=== PATIENT | female | born 1985 | race Caucasian/White ===

== ENCOUNTER 2020-08-03 16:34 | Emergency (ER) | payer BC, SELFPAY ==
[2020-08-03 16:58] VITALS: BP 127/85; PULSE 90; RESP 16; TEMP 36.2; O2SAT 99
[2020-08-03] MEDS: LIDOCAINE HCL 1% LOCAL INJ 20 ML VIAL IM (17:31)
[2020-08-03] MEDS: cefTRIAXone 250 MG VIAL IM (17:32)
--- NOTE | 2020-08-03 17:52 | ED.FEMALEGU ---
HPI - Female Genitourinary General Chief complaint: Urogenital-Female Stated complaint: STD Time Seen by Provider: 08/03/20 17:14 Source: patient and RN notes reviewed Mode of arrival: ambulatory Limitations: no limitations History of Present Illness HPI Narrative: Patient presents today with a 2-week history of malodorous clear discharge. States the clear discharge is more copious than normal. She denies pelvic or abdominal pain. She does have frequent unprotected intercourse with one male partner. No recent STD history. History of a LEEP procedure and cervical cancer. States she has not had a pelvic exam or Pap smear in approximately 7 years. Her significant other accompanies her here today with similar symptoms, for evaluation as well. MD elicited complaint: vaginal discharge Related Data Allergies Allergy/AdvReac Type Severity Reaction Status Date / Time azithromycin Allergy Mild Rash Verified 08/03/20 16:50 Review of Systems Review of Systems: Narrative: CONSTITUTIONAL: Denies body aches, fever, chills, or sweats. EYES: Denies visual changes, redness, or discharge. ENT: Denies rhinorrhea, congestion, sore throat, or otalgia. CARDIOVASCULAR: Denies chest pain, palpitations, or edema. RESPIRATORY: Denies cough or dyspnea. GASTROINTESTINAL: Denies abdominal pain, nausea, vomiting, or diarrhea. GENITOURINARY: Denies dysuria or hematuria.+ Malodorous clear vaginal discharge SKIN: Denies rash, itching, or wounds. MUSCULOSKELETAL: Denies back pain, joint pain, or myalgia. NEUROLOGIC: Denies headache, numbness, tingling, or weakness. PSYCH: Denies depression or anxiety. [facility] Past Medical History Medical History (Updated 08/03/20 @ 17:55 by Soraya Schumacher, [employer], ) History of cervical cancer Liver laceration Surgical History Surgical History (Updated 08/03/20 @ 17:55 by Soraya Schumacher, [facility], ) H/O tubal ligation S/P LEEP (loop electrosurgical excision procedure) Family History Family History (Updated 02/11/14 @ 07:13 by DOCTOR UNKNOWN) Mother Family history of osteoporosis Hypertension Family history of osteoarthritis Family history of elevated blood lipids Family history of thyroid disease Father Depression Hypertension Family history of arthritis Family history of congestive heart failure Social History Social History Second hand tobacco smoke exposure: Yes Smoking end date: 06/17/11 Alcohol intake: never Gender identity (if verbalized by the patient): Female Comments Reviewed. Pt has been instructed to follow up with her PCP regarding her elevated blood pressure today. Exam Narrative: Exam Narrative: GENERAL: Well-appearing, well-nourished, and in no acute distress. HEAD: Normocephalic, atraumatic. EYES: EOMI. No redness or drainage. Conjunctivae normal. ENT: Mucous membranes pink and moist. NECK: Normal AROM. Supple. No lymphadenopathy. CHEST: No respiratory distress. ABDOMEN: Soft, nontender, nondistended, normal active bowel sounds. : Patient declines a pelvic exam at this time. MUSCULOSKELETAL: No bony tenderness. EXTREMITIES: Normal range of motion. No edema. SKIN: Warm, dry, no rash. Capillary refill normal. Normal skin turgor. NEURO: No focal deficits. Alert and oriented x3. Gait steady. PSYCH: Normal affect. No signs of depression or anxiety. Course Vital Signs Vital signs: Vital Signs Temperature 97.1 F L 08/03/20 16:58 Pulse Rate 90 08/03/20 16:58 Respiratory Rate 16 08/03/20 16:58 Blood Pressure 127/85 08/03/20 16:58 Pulse Oximetry 99 08/03/20 16:58 Temperature 97.1 F L 08/03/20 16:58 Pulse Rate 90 08/03/20 16:58 Respiratory Rate 16 08/03/20 16:58 Blood Pressure 127/85 08/03/20 16:58 Pulse Oximetry 99 08/03/20 16:58 Reviewed. Pt has been instructed to follow up with her PCP regarding her elevated blood pressure today. MDM - Female Genitourinary Differential Diagnosis Differential diagnosis: Celi
== END 2020-08-03 17:44 | disposition home or self-care (01) ==
PROVIDERS: Emergency Provider Nurse Practitioner; PCP Family Medicine
DX: N89.8 Other specified noninflammatory disorders of vagina (principal); Z11.3 Encounter for screening for infections with a predominantly sexual mode of transmission; Z85.41 Personal history of malignant neoplasm of cervix uteri
CPT/HCPCS: 81025; 87491; 87591; 87661; 96372; 99214; G0463; J0696

== ENCOUNTER 2024-09-04 10:48 | Emergency (ER) | payer SELFPAY ==
[2024-09-04 10:57] VITALS: BP 109/65; PULSE 80; RESP 16; TEMP 36.7; O2SAT 100
--- OUTSIDE RECORDS SUMMARY | 2024-09-04 11:58 | XMS_ITS | Patient Health Record ---
Author Organization [facility] Address [address] [place] [address] Care Team Providers Care Induction Heat Treater Name Role Phone Ryan Lo Primary Care Provider [phone] Allergies Allergen (clinical drug ingredient) Drug/Non Drug Allergy documented on EMR Reaction Allergy Type Onset Date Status azithromycin Zithromax Z-Seven hives, breathing Drug Allergy Active Reason For Referral No Information Medications Medication SIG (Take, Route, Frequency, Duration) Notes Start Date End Date Status QUEtiapine Fumarate 50 MG 1 tablet Orally at night 08/14/2022 Active Clindamycin HCl 300 MG 2 capsules Orally every 8 hrs for 10 day(s) Active Multivitamin - 1 tablet Orally Once a day for 30 day(s) Active Escitalopram Oxalate 5 MG 0.5 TABLETS Or ally EVERY MORNING 08/14/2022 Active Ibuprofen 800 MG 1 tablet with food o r milk as needed Orally every 8 hrs Active Nicotine 10 MG/ML 1 spray as needed ev solomon 30-60 minutes Nasally as directed 10/24/2021 Active Social History Tobacco Use: Social History Observation Description Date Details (start date - stop date) Current Smoker NA - NA Sex Assigned At : Social History Observation Description Sex Assigned At Female Dont use, Tobacco Use/Smoking Question Answer Notes Are you a current smoker Problems Problem Type SNOMED Code ICD Code Onset Dates Problem Status W/U Status Risk Notes Problem Tobacco user (977809679) Nicotine dependence, unspecified, uncomplicated (F17.200) Active confirmed Problem 885181335 Depression with anxiety (F41.8) 10/12/19 Active confirmed Problem 917121777 Methamphetamine addiction (F15.20) Active confirmed Problem Bipolar disorder (79629196) Bipolar 1 disorder, depressed (F31.9) 08/14/19 23 Active confirmed Problem 465216209 Methamphetamine abuse (F15.10) Active confirmed Problem Fatigue (03748490) Fatigue, unspecified type (R53.83) Active confirmed Problem 982127024 Exposure to STD (Z20.2) Active confirmed Problem Infection caused by Trichomonas (21782183) Trichomonal infection (A59.9) Active confirmed Plan Of Treatment No Information Insurance Providers Payer Name Payer Address Payer Phone Subscriber Number Group Number Insured Name Patient Relationship to Insured Coverage Start Date Coverage End Date [address] [phone] [id number] Rosemary Nicolas Self - patient is the insured [address] [address] [id number] Rosemary Nicolas Self - patient is the insured 0 2 Medical (General) History Surgical History Surgery Date(Month/Year) Hospitalization History Reason Date(Month/Year)
--- OUTSIDE RECORDS SUMMARY | 2024-09-04 11:58 | XMS_ITS | Clinical Summary ---
Author Organization [facility] Address [address] [place] [address] Phone Care Team Providers Care Quality Manager Name Role Phone Provider, None Primary Care Provider Unavailabl e Allergies Active Allergy Reactions Criticality Noted Date Comments Azithromycin Anaphylaxis 09/01/2021 Medications ketorolac (TORADOL) 10 MG Tablet Take 1 Tablet by mouth every 6 hours as needed for Mild or more severe pain. 20 Tablet 09/01/2021 Active Social History Tobacco Use Types Packs/Day Years Used Date Smoking Tobacco: Every Day Cigarettes Smokeless Tobacco: Never Alcohol Use Standard Drinks/Week Comments Not Currently 0 (1 standard drink = 0.6 oz pur e alcohol) Comments No Sex and Gender Information Value Date Recorded Sex Assigned at Not on file Legal Sex Female 7:27 PM CDT Gender Identity Not on file Sexual Orientation Not on file Last Filed Vital Signs Vital Sign Reading Time Taken Comments Blood Pressure 123/75 09/01/2021 10:12 PM CDT Pulse 69 09/01/2021 10:12 PM CDT Temperature 36.4 C (97.5 F) 09/01/2021 7:38 PM CDT Respiratory Rate 18 09/01/2021 10:12 PM CDT Oxygen Saturation 100% 09/01/2021 10:12 PM CDT Inhaled Oxygen Concentration - - Weight 62.6 kg (138 lb) 09/01/2021 7:38 PM CDT Height 162.6 cm (5' 4 ) 09/01/2021 7:38 PM CDT Body Mass Index 23.69 09/01/2021 7:38 PM CDT Plan of Treatment Not on file Insurance MEDICAID [place] Care Teams Quality Manager Relationship Specialty Start Date End Date Provider, None [place] PCP - General 09/01/21
--- OUTSIDE RECORDS SUMMARY | 2024-09-04 11:58 | XMS_ITS | Clinical Summary ---
Author Organization [facility] Address [facility] [place] [address] Care Team Providers Care Pharmacy Intern Name Role Phone None, Provider MD Primary Care Provider Unavaila ble Allergies Active Allergy Reactions Criticality Noted Date Comments Azithromycin Hives 03/08/2019 Medications hydrOXYzine (ATARAX) 25 MG tablet Take 1 tablet (25 mg total) by mouth every 8 (eight) hours as needed for Anxiety. 20 tablet 07/12/2023 Active diazePAM (VALIUM) 5 MG tabletIndication s:Neck pain Take 1 tablet (5 mg total) by mouth every 6 (six) hours as needed for Muscle Spasms. 9 tablet 11/07/2023 Active Encounters Date Type Department Care Team Description 06/18/2024 8:55 PM ST[facility]ER - 06/18/2024 10:46 PM [facility] Emergency [facility] Emergency Room [address] [place] [address] Jered Reyes MD Finger Injury Discharge Disposition: Home or Self Care (Routine Discharge) 06/18/2024 Travel from Last 3 Months Social History Tobacco Use Types Packs/Day Years Used Date Smoking Tobacco: Every Day Cigarettes Smokeless Tobacco: Never Tobacco Cessation:Ready to Q uit: Not Asked; Counseling Given: Not Answered Alcohol Use Standard Drinks/Week Comments No 0 (1 standard drink = 0.6 oz pur e alcohol) Comments No Sex and Gender Information Value Date Recorded Sex Assigned at Not on file Legal Sex Female 7:24 PM CDT Gender Identity Not on file Sexual Orientation Not on file Last Filed Vital Signs Vital Sign Reading Time Taken Comments Blood Pressure 103/79 06/18/2024 8:59 PM STOCK L[facility]ER Pulse 71 06/18/2024 8:59 PM STOCK LAYER Temperature 36.6 C (97.8 F) 06/18/2024 8:59 PM STOCK LAYER Respiratory Rate 20 06/18/2024 8:59 PM STOCK LAYER Oxygen Saturation 100% 06/18/2024 8:59 PM STOCK LAYER Inhaled Oxygen Concentration - - Weight 64 kg (141 lb) 06/18/2024 8:59 PM STOCK LAYER Height 162.6 cm (5' 4 ) 06/18/2024 8:59 PM STOCK LAYER Body Mass Index 24.2 06/18/2024 8:59 PM STOCK LAYER Plan of Treatment Health Maintenance Due Date Last Done Comments Cervical Cancer Screening Pa p Smear (Age 30 to 64) Every 3 Years 1986 Annual Physical 1989 Pneumococcal Vaccine: Pediat rics (0 to 5 Years) and At-Risk Patients (6 to 64 Years) (1 of 2 - PCV) 1992 PHQ-2 (Physician [place]) 1998 Hepatitis C 2004 DTaP, Tdap and Td Vaccines ( 1 - Tdap) 2005 Hepatitis B Vaccines (1 of 3 - 19+ 3-dose series) 2005 Cervical Cancer Screening Pa p with HPV Testing (Age 30 to 64) Every 5 Years 2016 Cervical Cancer Screening with HPV 2016 COVID-19 Vaccine (2023-2 5 season) 2024 Influenza Adult (#1) 2024 PHQ-2 (Physician [place]) 06/17/2024 HPV Vaccines Aged Out No longer eligi ble based on patient's age to complete this topic Meningococcal B Vaccine Aged Out No l onger eligible based on patient's age to complete this topic Meningococcal Vaccine Aged Out No radha mandy eligible based on patient's age to complete this topic RSV Immunizations Under 20 Months Aged Out No longer eligible based on patient's age to complete this topic Procedures Procedure Name Priority Date/Time Associated Diagnosis Comments XR FOURTH FINGER LT 3V STAT 06/18/2024 9:20 PM STOCK LAYER from Last 3 Months Results * XR FOURTH FINGER LT 3V (06/18/2024 9:20 PM STOCK LAYER) Anatomical Region Laterality Modality Hand Radiographic Gita ging 06/18/2024 9:31 PM STOCK LAYER Impressions 06/18/2024 9:38 PM STOCK LAYER IMPRESSION: 1. No evidence of acute fracture or dislocation. 2. 2 mm rounded ovoid opacity subcutaneous soft tissues adjacent to the medial side of the nail bed may represent soft tissue contusion or laceration. Referred By: Interpreted By: Rolanda Barksdale DO, 06/18/2024 9:31 PM Narrative 06/18/2024 9:38 PM STOCK LAYER [facility] [address] [facility] [address] [place] [address] CLINICAL INDICATION: 38-year-old female. Reason for examination: Crush injury. 06/18/2024 9:20 PM, Jes Cabral L: finger slammed in door TECHNIQUE: Three-view survey of the left fourth finger. COMPARISON: No previous FINDINGS: No evidence of acute fracture or dislocation. Cortex of the distal tuft is intact. Prominent midline trabeculation in the distal tuft. All joint spaces are normally maintained. Included fourth metacarpal intact. No radiopaque foreign body.. Small, 2 mm rounded ovoid opacity adjacent to the medial side of the nail bed may represent soft tissue contusion or laceration. Procedure Note Rolanda Barksdale MD - 06/18/2024 [facility] [address] [place] [address] CLINICAL INDICATION: 38-year-old female. Reason for examination: Crush injury. 06/18/2024 9:20 PM, HecjayjayerBradfordna L: finger slammed in door TECHNIQUE: Three-view survey of the left fourth finger. COMPARISON: No previous FINDINGS: No evidence of acute fracture or dislocation. Cortex of the distal tuftis intact. Prominent midline trabeculation in the distal tuft. All jointspaces are normally maintained. Included fourth metacarpal intact. No radiopaque foreign body.. Small, 2 mm rounded ovoid opacity adjacentto the medial side of the nail bed may represent soft tissue contusion orlaceration. IMPRESSION: 1. No evidence of acute fracture or dislocation. 2. 2 mm rounded ovoid opacity subcutaneous soft tissues adjacent to themedial side of the nail bed may represent soft tissue contusion orlaceration. Referred By: Interpreted By: Rolanda Barksdale DO, 06/18/2024 9:31 PM Jered Reyes MD GENERAL IMAGING Final Result from Last 3 Months Care Teams Pharmacy Intern Relationship Specialty Start Date End Date None, Provider, PCP - General 03/08/19
[2024-09-04 11:59] LABS: Influenza A QL RT-PCR Negative (Negative); Influenza B QL RT-PCR Negative (Negative); RSV RNA, RT-PCR Negative (Negative); SARS-CoV-2 RNA PCR Negative (Negative)
--- NOTE | 2024-09-04 12:13 | ED.URI ---
HPI - URI/Sore Throat General Chief Complaint: Upper Respiratory Infection Stated Complaint: nasal congestion, cough Time Seen by Provider: 09/04/24 11:32 History of Present Illness HPI Narrative: 38-year-old female with no past medical history presents to the emergency department for 2-3 weeks of nasal congestion, sinus pressure, ear fullness and cough. Patient states over the past few days symptoms have continued to worsen. States several people at her household have been sick with similar symptoms. Her daughter was recently ill with flu a. She denies fever but does endorse chills. No chest pain or shortness of breath. No history of asthma or COPD but does smoke a pack per day for 20+ years. Related Data Allergies Allergy/AdvReac Type Severity Reaction Status Date / Time azithromycin Allergy Mild Rash Verified 08/03/20 16:50 Review of Systems Review of Systems: All systems reviewed & are unremarkable except as noted in HPI and below PMFSH Past Medical History Medical History Liver laceration History of cervical cancer Surgical History Surgical History H/O tubal ligation S/P LEEP (loop electrosurgical excision procedure) Family History Family History Mother Family history of osteoporosis Hypertension Family history of osteoarthritis Family history of elevated blood lipids Family history of thyroid disease Father Depression Hypertension Family history of arthritis Family history of congestive heart failure Social History Social History Second hand tobacco smoke exposure: Yes Smoking end date: 06/17/11 Alcohol intake: never Gender identity (if verbalized by the patient): Female Exam Narrative: GENERAL: Well-appearing, well-nourished, and in no acute distress. HEAD: Normocephalic, atraumatic. EYES: PERRLA and EOMI. ENT: Nares clear, no rhinorrhea or epistaxis. Mucous membranes moist. Tenderness to bilateral maxillary sinuses. Effusions to bilateral ears with no bulging or erythema NECK: Supple. CHEST: Clear to auscultation. No respiratory distress. HEART: Regular rate and rhythm. No murmur heard. Normal peripheral pulses. ABDOMEN: Soft, nontender, nondistended, normal active bowel sounds. EXTREMITIES: Normal range of motion. No edema. SKIN: Warm, dry, no rash. NEURO: No focal deficits. Alert and oriented x3 Course Vital Signs Vital signs: Vital Signs Temperature 98.0 F 09/04/24 10:57 Pulse Rate 80 09/04/24 10:57 Respiratory Rate 16 09/04/24 10:57 Blood Pressure 109/65 09/04/24 10:57 Pulse Oximetry 100 09/04/24 10:57 Temperature 98.0 F 09/04/24 10:57 Pulse Rate 80 09/04/24 10:57 Respiratory Rate 16 09/04/24 10:57 Blood Pressure 109/65 09/04/24 10:57 Pulse Oximetry 100 09/04/24 10:57 MDM - URI/Sore Throat MDM Narrative Medical decision making narrative: 38-year-old female presents to the emergency department for 2-3 weeks of nasal congestion, sinus pressure and cough. Vitals are stable. Exam is significant for the above. Notably tenderness over the maxillary sinuses and bilateral TM effusions with no evidence of acute otitis media. Lung sounds are clear. Viral swabs are negative. Patient updated on results. Given duration of symptoms, will treat for sinusitis with Augmentin in addition to ibuprofen and Flonase. Advised follow-up with PCP discussed return precautions. She is agreeable to plan verbalized understanding. Discharged in stable condition. Lab Data Labs: Lab Results 09/04/24 Range/Units 11:09 Influenza A (RT-PCR) Negative (Negative) Influenza B (RT-PCR) Negative (Negative) RSV (RT-PCR) Negative (Negative) SARS-CoV-2 RNA (RT-PCR) Negative (Negative) Discharge Plan Discharge Clinical Impression: Acute sinusitis Qualifiers: Sinusitis location: maxillary Recurrence: not specified as recurrent Qualified Code(s): J01.00 - Acute maxillary sinusitis, unspecified Acute serous otitis media Qualifiers: Laterality: bilateral Recurrence: not specified as recurrent Qualified Code(s): H65.03 - Acute serous otitis media, bilateral Patient Disposition: Home, Self-Care Condition: Stable Instructions: Antibiotic Form, Sinusitis (ED), Fluid In The Ear (Serous Otitis Media) (ED) Additional Instructions: Your evaluated in the emergency department for cough, congestion for several weeks. Your COVID, flu RSV test were negative. Her presentation is consistent with a sinus infection and fluid on her eardrums. Please take antibiotics as directed in addition to the Flonase and ibuprofen as needed. Follow up with her primary care provider. Return to the emergency department if you develop new or worsening symptoms. Patient Language: Pashto Prescriptions: New amoxicillin-pot clavulanate 875-125 mg tablet 1 tablet PO Q12H Qty: 14 0RF fluticasone propionate [Flonase Allergy Relief] 50 mcg/actuation spray,suspension 1 spray intranasal Q12H Qty: 16 0RF Rx Instructions: administer into each nostril ibuprofen 800 mg tablet 800 mg PO TID PRN (Reason: pain) Qty: 20 0RF No Action metronidazole [Flagyl] 500 mg tablet 500 mg PO ONCE Qty: 4 0RF doxycycline hyclate 100 mg capsule 100 mg PO BID 7 Days Qty: 14 0RF Follow-up/Referrals: PHYSICIAN,CHIEF SOLUTION ARCHITECT [Primary Care Provider] - Pito Blackman MD [Physician] -
[2024-09-04] MEDS: AMOXICILLIN/CLAVULANATE K 875-125 MG TAB 1 TABLET PO (12:28)
--- OUTSIDE RECORDS SUMMARY | 2024-09-04 12:46 | XMS_ITS | Clinical Summary ---
Author Organization [facility] Address [address] [place] [address] Phone Care Team Providers Care Tobacco Sampler Name Role Phone Provider, None Primary Care [...] Insurance MEDICAID BLUE [place] Care Teams Tobacco Sampler Relationship Specialty Start Date End Date Provider, None [place] PCP - General 09/01/21
--- OUTSIDE RECORDS SUMMARY | 2024-09-04 12:46 | XMS_ITS | Clinical Summary ---
Author Organization [facility] Address [facility] [place] [address] Care Team Providers Care Gas Welding Machine Operator Name Role Phone None, Provider MD Primary [...] Department Care Team Description 06/18/2024 8:55 PM COMPUTED TOMOGRAPHY TECHNOLOGIST - 06/18/2024 10:46 PM [facility] Emergency [facility] Emergency Room [address] [place] [address] Jered Reyes MD Finger Injury Discharge Disposition: [...] Comments Blood Pressure 103/79 06/18/2024 8:59 PM COMPUTED TOMOGRAPHY TECHNOLOGIST Pulse 71 06/18/2024 8:59 PM COMPUTED TOMOGRAPHY TECHNOLOGIST Temperature 36.6 C (97.8 F) 06/18/2024 8:59 PM COMPUTED TOMOGRAPHY TECHNOLOGIST Respiratory Rate 20 06/18/2024 8:59 PM COMPUTED TOMOGRAPHY TECHNOLOGIST Oxygen Saturation 100% 06/18/2024 8:59 PM COMPUTED TOMOGRAPHY TECHNOLOGIST Inhaled Oxygen Concentration - - Weight 64 kg (141 lb) 06/18/2024 8:59 PM COMPUTED TOMOGRAPHY TECHNOLOGIST Height 162.6 cm (5' 4 ) 06/18/2024 8:59 PM COMPUTED TOMOGRAPHY TECHNOLOGIST Body Mass Index 24.2 06/18/2024 8:59 PM COMPUTED TOMOGRAPHY TECHNOLOGIST Plan of Treatment Health Maintenance Due Date Last Done Comments Cervical Cancer Screening Pa p Smear (Age 30 to 64) Every 3 Years 1986 Annual Physical 1989 Pneumococcal Vaccine: Pediat rics (0 to 5 Years) and At-Risk Patients (6 to 64 Years) (1 of 2 - PCV) 1992 PHQ-2 (Physician [place]) 1998 Hepatitis C 2004 DTaP, Tdap and Td Vaccines ( 1 - Tdap) 2005 Hepatitis B Vaccines (1 of 3 - 19+ 3-dose series) 2005 Cervical Cancer Screening Pa p with HPV Testing (Age 30 to 64) Every 5 Years 2016 Cervical Cancer Screening with HPV 2016 COVID-19 Vaccine (2023-2 5 season) 2024 Influenza Adult (#1) 2024 PHQ-2 (Physician [place]) 06/17/2024 HPV Vaccines Aged Out No longer [...] FINGER LT 3V STAT 06/18/2024 9:20 PM COMPUTED TOMOGRAPHY TECHNOLOGIST from Last 3 Months Results * XR FOURTH FINGER LT 3V (06/18/2024 9:20 PM COMPUTED TOMOGRAPHY TECHNOLOGIST) Anatomical Region Laterality Modality Hand Radiographic Gita ging 06/18/2024 9:31 PM COMPUTED TOMOGRAPHY TECHNOLOGIST Impressions 06/18/2024 9:38 PM COMPUTED TOMOGRAPHY TECHNOLOGIST IMPRESSION: 1. No evidence of acute fracture or dislocation. 2. 2 mm rounded ovoid opacity subcutaneous soft tissues adjacent to the medial side of the nail bed may represent soft tissue contusion or laceration. Referred By: Interpreted By: Rolanda Barksdale DO, 06/18/2024 9:31 PM Narrative 06/18/2024 9:38 PM COMPUTED TOMOGRAPHY TECHNOLOGIST [facility] [address] [facility] [address] [place] [address] CLINICAL INDICATION: 38-year-old female. Reason for examination: [...] Procedure Note Rolanda Barksdale MD - 06/18/2024 [facility] [address] [place] [address] CLINICAL INDICATION: 38-year-old female. Reason for examination: [...] Result from Last 3 Months Care Teams Gas Welding Machine Operator Relationship Specialty Start Date End Date None, Provider, PCP - General 03/08/19
== END 2024-09-04 12:30 | disposition home or self-care (01) ==
PROVIDERS: Family Medicine; Emergency Provider Physician Assistant
DX: J01.00 Acute maxillary sinusitis, unspecified (principal); H65.03 Acute serous otitis media, bilateral; Z20.822 Contact with and (suspected) exposure to COVID-19; F17.210 Nicotine dependence, cigarettes, uncomplicated; Z85.41 Personal history of malignant neoplasm of cervix uteri
CPT/HCPCS: 87637; 99283; A9270

== ENCOUNTER 2025-01-04 12:23 | Emergency (ER) | payer SELFPAY ==
[2025-01-04] VITALS (8 sets, daily range): BP systolic 99–115; BP diastolic 53–78; PULSE 54–67; RESP 16–30; TEMP 36.7; O2SAT 99–100
--- NOTE | ~2025-01-04 | XR_ITS ---
EXAMINATION: XR chest 2V 01/04/2025 14:00 INDICATION: Chest pain PROCEDURE: 2 view chest COMPARISON: Comparison to multiple prior studies sequentially, with oldest reviewed study dated 11/2011. FINDINGS: The lungs are clear. The cardiomediastinal silhouette is within normal limits. There are no pleural effusions. There is no pneumothorax suspected. IMPRESSION: 1: NO ACUTE CARDIOPULMONARY DISEASE. Reviewed, dictated and finalized at location A.
--- OUTSIDE RECORDS SUMMARY | 2025-01-04 12:26 | XMS_ITS | Clinical Summary ---
Author Organization [facility] Address [facility] [place] [address] Care Team Providers Care Director Of Securities And Real Estate Name Role Phone None, Provider MD Primary [...] for Muscle Spasms. 9 tablet 11/07/2023 Active Social History Tobacco Use Types Packs/Day [...] Comments Blood Pressure 103/79 06/18/2024 8:59 PM BOTTOM CEMENTER Pulse 71 06/18/2024 8:59 PM BOTTOM CEMENTER Temperature 36.6 C (97.8 F) 06/18/2024 8:59 PM BOTTOM CEMENTER Respiratory Rate 20 06/18/2024 8:59 PM BOTTOM CEMENTER Oxygen Saturation 100% 06/18/2024 8:59 PM BOTTOM CEMENTER Inhaled Oxygen Concentration - - Weight 64 kg (141 lb) 06/18/2024 8:59 PM BOTTOM CEMENTER Height 162.6 cm (5' 4) 06/18/2024 8:59 PM BOTTOM CEMENTER Body Mass Index 24.2 06/18/2024 8:59 PM BOTTOM CEMENTER Plan of Treatment Health Maintenance Due Date Last Done Comments Cervical Cancer Screening Pa p Smear (Age 30 to 64) Every 3 Years 1986 Annual Physical 1989 Hepatitis C 2004 DTaP, Tdap and Td Vaccines ( 1 - Tdap) 2005 Hepatitis B Vaccines (1 of 3 - 19+ 3-dose series) 2005 Pneumococcal Vaccine: Pediat rics (0 to 5 Years) and At-Risk Patients (6 to 49 Years) (1 of 2 - PCV) 2005 HPV Vaccines (1 - 3-dose SCD M series) 2013 Cervical Cancer Screening Pa p with HPV Testing (Age 30 to 64) Every 5 Years 2016 Cervical Cancer Screening with HPV 2016 COVID-19 Vaccine (2023-2 5 season) 2024 PHQ-2 (Physician [place]) 06/17/2024 Meningococcal B Vaccine Aged Out No l onger eligible based on patient's age to complete this topic Meningococcal Vaccine Aged Out No radha mandy eligible based on patient's age to complete this topic RSV Immunizations Under 20 Months Aged Out No longer eligible based on patient's age to complete this topic Care Teams Director Of Securities And Real Estate Relationship Specialty Start Date End Date None, Provider, PCP - General 03/08/19
--- OUTSIDE RECORDS SUMMARY | 2025-01-04 12:26 | XMS_ITS | Patient Health Record ---
Author Organization [facility] Address [address] [place] [address] Care Team Providers Care Manager Work Name Role Phone Ryan Lo Primary Care Provider Allergies Allergen (clinical drug ingredient) Drug/Non Drug Allergy documented on EMR Reaction Allergy Type Onset Date Status azithromycin Zithromax Z-Seven hives, breathing Drug Allergy Active Reason For Referral No Information Medications Medication SIG (Take, Route, Frequency, Duration) Notes Start Date End Date Status QUEtiapine Fumarate 50 MG 1 tablet Orally at night 08/14/2022 Active Clindamycin HCl 300 MG 2 capsules Orally every 8 hrs; Duration: 10 day(s) Active Multivitamin - 1 tablet Orally Once a day; Duration: 30 day(s) Active Escitalopram Oxalate 5 MG [...] W/U Status Risk Notes Problem Tobacco user (132856175) Nicotine dependence, unspecified, uncomplicated (F17.200) Active confirmed Problem Mixed anxiety and depressive disorder (523835068) Depression with anxiety (F41.8) 10/12/19 22 Active confirmed Problem Methamphetamine dependence (223877060) Methamphetamine addiction (F15.20) Active confirmed Problem Bipolar disorder (16287820) Bipolar 1 disorder, depressed (F31.9) 08/14/19 23 Active confirmed Problem Methamphetamine abuse (856562341) Methamphetamine abuse (F15.10) Active confirmed Problem Fatigue (46605797) Fatigue, unspecified type (R53.83) Active confirmed Problem Exposure to sexually transmissible disorder (124967376) Exposure to STD (Z20.2) Active confirmed Problem Infection caused by Trichomonas (71887644) Trichomonal infection (A59.9) Active confirmed Plan Of Treatment No Information Insurance Providers Payer Name Payer Address Payer Phone Subscriber Number Group Number Insured Name Patient Relationship to Insured Coverage Start Date Coverage End Date [address] [id number] Rosemary Nicolas Self - patient is the insured [address] [id number] [id number] Rosemary Nicolas Self - patient is the insured 0 2 Medical (General) History Surgical History Surgery Date(Month/Year) Hospitalization History Reason Date(Month/Year)
--- OUTSIDE RECORDS SUMMARY | 2025-01-04 12:26 | XMS_ITS | Clinical Summary ---
Author Organization [facility] Address [address] [place] [address] Phone Care Team Providers Care Metallurgical Or Materials Technician Name Role Phone Provider, None Primary Care [...] 7:38 PM CDT Height 162.6 cm (5' 4) 09/01/2021 7:38 PM CDT Body Mass Index 23.69 09/01/2021 7:38 PM CDT Plan of Treatment Not on file Insurance MEDICAID [place] Care Teams Metallurgical Or Materials Technician Relationship Specialty Start Date End Date Provider, None [place] PCP - General 09/01/21
--- NOTE | 2025-01-04 12:27 | ECG_ITS ---
Test Date: 2025-01-04 12:30:02 Measurements Intervals Naylor Rate: 65 P: 58 LA: 137 QRS: 51 QRSD: 85 T: 56 QT: 392 QTc: 410 Interpretive Statements SINUS RHYTHM POSSIBLE LEFT ATRIAL ENLARGEMENT [-0.1mV P WAVE IN V1/V2] No previous ECG available for comparison Electronically Signed On 01-04-2025 15:22:17 CDT by Francisco Wilkinson M.D.
[2025-01-04 12:50] LABS: Hematocrit 38.3 % (37.0-47.0); Hemoglobin 13.3 g/dL (12.0-15.0); Immature Granulocyte Percent A 0.1 % (0-0.5); Lymphocytes Absolute Auto 2.26 K/mm3 (0.9-3.2); Mean Corpuscular HGB Conc 34.7 g/dl (32-36); Mean Corpuscular Hemoglobin 32.9 pg (26-34); Mean Corpuscular Volume 94.8 fl (80-100); Nucleated Red Blood Cells Absolute Auto 0.000 K/mm3 (0.0-0.012); Nucleated Red Blood Cells Perc 0.0 % (0.0-0.2); Platelet Count Result 250 k/mm3 (150-375); Red Blood Count 4.04 M/mm3 (4.2-5.4); White Blood Count 6.9 K/mm3 (4.5-10.0)
[2025-01-04 13:01] LABS: INR 1.0; Prothrombin Time 13.6 Seconds (11.1-14.7)
[2025-01-04 13:02] LABS: Partial Thromboplastin Time 30.1 Seconds (22.3-36.8)
[2025-01-04 13:11] LABS: Alanine Aminotransferase 16 U/L (6-35); Albumin Level 4.3 g/dL (3.5-5.1); Alkaline Phosphatase 52 U/L (38-126); Anion Gap 7 mmol/L (4-12); Aspartate Amino Transferase 24 U/L (14-36); Bilirubin,Total 0.6 mg/dL (0.2-1.3); Blood Urea Nitrogen 9 mg/dL (7-17); Calcium 8.8 mg/dL (8.4-10.2); Carbon Dioxide 24 mmol/L (22-30); Chloride 105 mmol/L (98-107); Estimated Glomerular Filt Rate > 60; Glucose 93 mg/dL (65-110); Lipase 95 U/L (23-300); Potassium 3.7 mmol/L (3.4-5.0); Sodium 136 mmol/L (137-145); Total Protein 7.1 g/dL (6.3-8.2)
[2025-01-04 13:25] LABS: Troponin I < 0.012 ng/mL (0.000-0.034)
--- OUTSIDE RECORDS SUMMARY | 2025-01-04 14:57 | XMS_ITS | Clinical Summary ---
Author Organization [facility] Address [facility] [place] [address] Care Team Providers Care Research Assistant Name Role Phone None, Provider MD Primary [...] Comments Blood Pressure 103/79 06/18/2024 8:59 PM HAND CIGAR MAKING SUPERVISOR Pulse 71 06/18/2024 8:59 PM HAND CIGAR MAKING SUPERVISOR Temperature 36.6 C (97.8 F) 06/18/2024 8:59 PM HAND CIGAR MAKING SUPERVISOR Respiratory Rate 20 06/18/2024 8:59 PM HAND CIGAR MAKING SUPERVISOR Oxygen Saturation 100% 06/18/2024 8:59 PM HAND CIGAR MAKING SUPERVISOR Inhaled Oxygen Concentration - - Weight 64 kg (141 lb) 06/18/2024 8:59 PM HAND CIGAR MAKING SUPERVISOR Height 162.6 cm (5' 4) 06/18/2024 8:59 PM HAND CIGAR MAKING SUPERVISOR Body Mass Index 24.2 06/18/2024 8:59 PM HAND CIGAR MAKING SUPERVISOR Plan of Treatment Health Maintenance Due Date [...] Vaccine (2023-2 5 season) 2024 PHQ-2 (Physician [place]) 06/17/2024 Meningococcal B Vaccine Aged Out No l onger eligible based on patient's age to complete this topic Meningococcal Vaccine Aged Out No radha mandy eligible based on patient's age to complete this topic RSV Immunizations Under 20 Months Aged Out No longer eligible based on patient's age to complete this topic Care Teams Research Assistant Relationship Specialty Start Date End Date None, Provider, PCP - General 03/08/19
--- OUTSIDE RECORDS SUMMARY | 2025-01-04 14:57 | XMS_ITS | Clinical Summary ---
Author Organization [facility] Address [address] [place] [address] Phone Care Team Providers Care Coverage Specialist Name Role Phone Provider, None Primary Care [...] Insurance MEDICAID BLUE [place]OSS [place] Care Teams Coverage Specialist Relationship Specialty Start Date End Date Provider, None [place] PCP - General 09/01/21
--- NOTE | 2025-01-04 15:43 | ED_ITS ---
HPI - General Adult General Chief complaint: Syncope Stated complaint: near syncopy Time Seen by Provider: 01/04/25 14:47 History of Present Illness HPI narrative: 39-year-old female presents to the emergency department for evaluation for having a near syncopal episode at work. Patient states she has had some dizziness with ambulation. At work she stated she felt like she was going to pass out but did. Patient was able to rest and symptoms resolved. Patient denies any recent nausea vomiting. Patient denies any chance of . Patient does have a remote history of IV drug use approximately 4 years ago. Patient denies any current IV drug use. Related Data Allergies Allergy/AdvReac Type Severity Reaction Status Date / Time azithromycin Allergy Mild Rash Verified 08/03/20 16:50 Review of Systems 2 Review of Systems: All systems reviewed & are unremarkable except as noted in HPI and below PMFSH Past Medical History Medical History Liver laceration History of cervical cancer Surgical History Surgical History H/O tubal ligation S/P LEEP (loop electrosurgical excision procedure) Family History Family History Mother Family history of osteoporosis Hypertension Family history of osteoarthritis Family history of elevated blood lipids Family history of thyroid disease Father Depression Hypertension Family history of arthritis Family history of congestive heart failure Social History Social History Second hand tobacco smoke exposure: Yes Smoking end date: 06/17/11 Alcohol intake: never Gender identity (if verbalized by the patient): Female Exam 2 Narrative: APPEARANCE: Well appearing, no pain, no distress, well-nourished. HEAD: normocephalic, atraumatic. EYES: PERRLA/EOMI, conjunctivae clear. NOSE: Normal no drainage EARS:TMS clear with good light reflex. THROAT: Pharynx clear, no exudate. NECK: Supple. No adenopathy, no masses. RESPIRATORY: Airway patent, respirations nonlabored. Clear to auscultation bilaterally, no rales, rhonchi, wheezing. CARDIOVASCULAR: Regular rate and rhythm without murmurs rubs or gallops. ABDOMINAL: Soft, nontender, nondistended, normal bowel sounds MUSCULOSKELETAL: Moves all extremities. Strength/ROM intact, No edema, No calf tenderness. NEURO: Alert. Cranial nerves II through XII intact. Good gait. Good coordination SKIN: Warm, dry. Normal Color Course Vital Signs Vital signs: Vital Signs Temperature 98.1 F 01/04/25 12:56 Pulse Rate 64 01/04/25 12:56 Respiratory Rate 16 01/04/25 12:56 Blood Pressure 99/61 L 01/04/25 12:56 Pulse Oximetry 99 01/04/25 12:56 Oxygen Delivery Room Air 01/04/25 12:56 Temperature 98.1 F 01/04/25 12:56 Pulse Rate 59 L 01/04/25 15:18 Respiratory Rate 16 01/04/25 15:18 Blood Pressure 111/71 01/04/25 15:18 Pulse Oximetry 100 01/04/25 15:18 Oxygen Delivery Room Air 01/04/25 14:33 Medical Decision Making MDM Narrative Medical decision making narrative: 39-year-old female presented to the emergency department for evaluation for episode near-syncope. Patient was able to ambulate in the emergency department without issue. Patient did decline an IV due to her being a difficult stick. Patient is currently afebrile with no leukocytosis hemoglobin of 13.3. INR 1.0 with no acute abnormalities on her CMP. Chest x-ray shows no acute cardiopulmonary abnormality. Differential Diagnosis Differential Diagnosis: Near syncope, syncope, dehydration, orthostatic hypotension Vital Signs Vital Signs: Vital Signs Temperature 98.1 F 01/04/25 12:56 Pulse Rate 64 01/04/25 12:56 Respiratory Rate 16 01/04/25 12:56 Blood Pressure 99/61 L 01/04/25 12:56 Pulse Oximetry 99 01/04/25 12:56 Oxygen Delivery Room Air 01/04/25 12:56 Temperature 98.1 F 01/04/25 12:56 Pulse Rate 59 L 01/04/25 15:18 Respiratory Rate 16 01/04/25 15:18 Blood Pressure 111/71 01/04/25 15:18 Pulse Oximetry 100 01/04/25 15:18 Oxygen Delivery Room Air 01/04/25 14:33 Lab Data Lab results reviewed: Yes I reviewed the patient's lab results. 01/04/25 12:41 01/04/25 12:41 Labs: Lab Results 01/04/25 Range/Units 12:41 WBC 6.9 (4.5-10.0) K/mm3 RBC 4.04 L (4.2-5.4) M/mm3 Hgb 13.3 (12.0-15.0) g/dL Hct 38.3 (37.0-47.0) % MCV 94.8 (80-100) fl MCH 32.9 (26-34) pg MCHC 34.7 (32-36) g/dl RDW 12.0 (11.5-14.5) % Plt Count 250 (150-375) k/mm3 MPV 10.2 (7.4-10.4) fl Immature Gran % (Auto) 0.1 (0-0.5) % Neut % (Auto) 56.4 (45.5-73.1) % Lymph % (Auto) 32.7 (18.3-44.2) % Hamilton % (Auto) 4.3 (2.6-8.5) % Eos % (Auto) 5.9 H (0-4.4) % Baso % (Auto) 0.6 (0.2-1.2) % Lymph # (Auto) 2.26 (0.9-3.2) K/mm3 [place] # (Auto) 0.3 (0.1-0.6) K/mm3 Eos # (Auto) 0.4 H (0-0.3) K/mm3 Baso # (Auto) 0.0 (0.0-0.1) K/mm3 Abs Immat Gran (auto) 0.01 (0.00-0.031) K/mm3 Absolute Neuts (auto) 3.9 (1.3-6.7) K/mm3 Absolute Nucleated RBC 0.000 (0.0-0.012) K/mm3 Nucleated RBC % 0.0 (0.0-0.2) % PT 13.6 (11.1-14.7) Seconds INR 1.0 APTT 30.1 (22.3-36.8) Seconds Sodium 136 L (137-145) mmol/L Potassium 3.7 (3.4-5.0) mmol/L Chloride 105 (98-107) mmol/L Carbon Dioxide 24 (22-30) mmol/L Anion Gap 7 (4-12) mmol/L BUN 9 (7-17) mg/dL Creatinine 0.68 L (0.7-1.0) mg/dL Estim Creat Clear Calc Not Reportable Estimated GFR > 60 (59 - ) Glucose 93 (65-110) mg/dL Calcium 8.8 (8.4-10.2) mg/dL Total Bilirubin 0.6 (0.2-1.3) mg/dL AST 24 (14-36) U/L ALT 16 (6-35) U/L Alkaline Phosphatase 52 (38-126) U/L Troponin I < 0.012 (0.000-0.034) ng/mL Total Protein 7.1 (6.3-8.2) g/dL Albumin 4.3 (3.5-5.1) g/dL Lipase 95 (23-300) U/L Discharge Plan Discharge Clinical Impression: Near syncope Patient Disposition: Home Condition: Stable Instructions: Antibiotic Form, Dehydration (ED), Near Syncope (ED) Additional Instructions: Your chest x-ray, EKG and labs showed no acute abnormality. You preferred to decline attempts at an IV for rehydration. You are being provided some Zofran for nausea control. Drink plenty of fluids. Have close follow-up with your primary care physician. If you have any worsening symptoms then please call or return to the emergency department. Patient Language: Taiwanese Prescriptions: New ondansetron 4 mg tablet,disintegrating 4 mg PO Q8H PRN (Reason: nausea and vomiting) Qty: 14 0RF No Action metronidazole [Flagyl] 500 mg tablet 500 mg PO ONCE Qty: 4 0RF doxycycline hyclate 100 mg capsule 100 mg PO BID 7 Days Qty: 14 0RF amoxicillin-pot clavulanate 875-125 mg tablet 1 tablet PO Q12H Qty: 14 0RF fluticasone propionate [Flonase Allergy Relief] 50 mcg/actuation spray,suspension 1 spray intranasal Q12H Qty: 16 0RF Rx Instructions: administer into each nostril ibuprofen 800 mg tablet 800 mg PO TID PRN (Reason: pain) Qty: 20 0RF Follow-up/Referrals: PHYSICIAN,OPTICIAN APPRENTICE DISPENSING [Primary Care Provider] -
== END 2025-01-04 16:00 | disposition home or self-care (01) ==
PROVIDERS: Emergency Provider Emergency Medicine
DX: R55 Syncope and collapse (principal); Z85.41 Personal history of malignant neoplasm of cervix uteri
CPT/HCPCS: 36415; 71046; 80053; 83690; 84484; 85025; 85610; 85730; 93005; 96360; 99284